=== PATIENT | female | born 1995 | race American Indian/Alaskan Native ===

== ENCOUNTER 2017-10-19 15:16 | Emergency (ER) | payer OTHER ==
[2017-10-19 16:02] VITALS: BP 112/74
[2017-10-19 17:23] LABS: HCG Qualitative,Urine Negative (Negative)
--- NOTE | 2017-10-19 19:58 | Emergency Department Report ---
- General Chief Complaint: Upper Respiratory Infection Stated Complaint: ABDOMINAL PAIN Time Seen by Provider: 10/19/17 19:33 Source: patient Mode of arrival: Ambulatory Limitations: No Limitations - History of Present Illness Initial Comments: 22-year-old female past medical history asthma, eczema presents with 1 week of cough and runny nose and slightly sore throat. Patient is awake alert and oriented 3 not in acute distress. Denies any significant fevers chills nausea vomiting chest pain palpitations or pleuritic chest pain. Patient is fully lucid. States she is also concerned she may be . MD Complaint: cough, rhinorrhea, nasal congestion Onset/Timin -: week(s) Severity: moderate Consistency: intermittent Improves With: OTC cold medicine Worsens With: nothing Context: sick contacts Associated Symptoms: headache, rhinorrhea, nasal congestion, sore throat, cough Treatments Prior to Arrival: "cold medicine" - Related Data Previous Rx's Medication Instructions Recorded Last Taken Type Albuterol Sulfate [Ventolin Hfa] 1 puff IH Q4H PRN #1 hfa.aer.ad 10/19/17 Unknown Rx Dextromethorphan/Benzocaine 1 each PO Q4H PRN #1 box 10/19/17 Unknown Rx [Cepacol Sorethroat-Cough Jatinder] Famotidine [Pepcid] 20 mg PO BID PRN #30 tablet 10/19/17 Unknown Rx Ibuprofen [Motrin] 600 mg PO Q8H PRN #30 tablet 10/19/17 Unknown Rx Phenylephrine/Dm/Acetaminop/GG 10 ml PO Q6H PRN #1 liquid 10/19/17 Unknown Rx [Mucinex Ftzr-Nvp-Sfmhzqckiu Lq] Allergies Allergy/AdvReac Type Severity Reaction Status Date / Time No Known Allergies Allergy Verified 10/19/17 15:54 ED Review of Systems ROS: Stated complaint: ABDOMINAL PAIN Other details as noted in HPI Constitutional: malaise. denies: chills, fever Eyes: denies: eye pain, eye discharge, vision change ENT: throat pain. denies: ear pain Respiratory: denies: cough, shortness of breath, wheezing Cardiovascular: denies: chest pain, palpitations Endocrine: no symptoms reported Gastrointestinal: denies: abdominal pain, nausea, diarrhea Genitourinary: denies: urgency, dysuria, discharge Musculoskeletal: denies: back pain, joint swelling, arthralgia Skin: denies: rash, lesions Neurological: denies: headache, weakness, paresthesias Psychiatric: denies: anxiety, depression Hematological/Lymphatic: denies: easy bleeding, easy bruising ED Past Medical Hx - Past Medical History Previous Medical History?: Yes Hx CVA: No Hx Congestive Heart Failure: No Hx Diabetes: No Hx Deep Vein Thrombosis: No Hx GERD: No Hx of Cancer: No Hx Arthritis: No Hx Asthma: Yes Hx COPD: No Hx Dementia: No - Surgical History Past Surgical History?: Yes Hx Coronary Stent: No Hx Open Heart Surgery: No Hx Pacemaker: No Hx Internal Defibrillator: No Hx Cholecystectomy: No Hx Appendectomy: Yes Hx Breast Surgery: No - Social History Smoking Status: Never Smoker Substance Use Type: Alcohol - Medications Home Medications: Home Medications Medication Instructions Recorded Confirmed Last Taken Type Albuterol Sulfate [Ventolin Hfa] 1 puff IH Q4H PRN #1 hfa.aer.ad 10/19/17 Unknown Rx Dextromethorphan/Benzocaine 1 each PO Q4H PRN #1 box 10/19/17 Unknown Rx [Cepacol Sorethroat-Cough Jatinder] Famotidine [Pepcid] 20 mg PO BID PRN #30 tablet 10/19/17 Unknown Rx Ibuprofen [Motrin] 600 mg PO Q8H PRN #30 tablet 10/19/17 Unknown Rx Phenylephrine/Dm/Acetaminop/GG 10 ml PO Q6H PRN #1 liquid 10/19/17 Unknown Rx [Mucinex Hivf-Rfy-Aucafnrjev Lq] ED Physical Exam - General Limitations: No Limitations General appearance: alert, in no apparent distress - Head Head exam: Present: atraumatic, normocephalic - Eye Eye exam: Present: normal appearance, PERRL, EOMI - ENT ENT exam: Present: mucous membranes moist - Neck Neck exam: Present: normal inspection - Respiratory Respiratory exam: Present: normal lung sounds bilaterally. Absent: respiratory distress - Cardiovascular Cardiovascular Exam: Present: regular rate, normal rhythm. Absent: systolic murmur, diastolic murmur, rubs, gallop - GI/Abdominal GI/Abdominal exam: Present: soft, normal bowel sounds - Extremities Exam Extremities exam: Present: normal inspection - Back Exam Back exam: Present: normal inspection - Neurological Exam Neurological exam: Present: alert, oriented X3 - Psychiatric Psychiatric exam: Present: normal affect, normal mood - Skin Skin exam: Present: warm, dry, intact, normal color. Absent: rash ED Course Vital Signs 10/19/17 15:54 Temperature 98.1 F Pulse Rate 77 Respiratory 16 Rate Blood Pressure 112/74 Blood Pressure 112/74 [Right] O2 Sat by Pulse 99 Oximetry Critical care attestation.: If time is entered above; I have spent that time in minutes in the direct care of this critically ill patient, excluding procedure time. ED Disposition Clinical Impression: Upper respiratory infection Qualifiers: URI type: unspecified viral URI Qualified Code(s): J06.9 - Acute upper respiratory infection, unspecified; B97.89 - Other viral agents as the cause of diseases classified elsewhere; B97.89 - Other viral agents as the cause of diseases classified elsewhere Disposition: DC-01 TO HOME OR SELFCARE Is pt being admited?: No Does the pt Need Aspirin: No Condition: Stable Instructions: Upper Respiratory Infection (ED), Viral Syndrome (ED), Cold Symptoms (ED) Prescriptions: Albuterol Sulfate [Ventolin Hfa] 1 puff IH Q4H PRN #1 hfa.aer.ad PRN Reason: Wheezing Dextromethorphan/Benzocaine [Cepacol Sorethroat-Cough Jatinder] 1 each PO Q4H PRN #1 box PRN Reason: Sore Throat Famotidine [Pepcid] 20 mg PO BID PRN #30 tablet PRN Reason: Indigestion Ibuprofen [Motrin] 600 mg PO Q8H PRN #30 tablet PRN Reason: Pain Phenylephrine/Dm/Acetaminop/GG [Mucinex Hygx-Ktv-Objzcsigtf Lq] 10 ml PO Q6H PRN #1 liquid PRN Reason: Cough Referrals: [facility] [Outside] - 3-5 Days [facility] [Outside] - 3-5 Days Time of Disposition: 20:02
== END 2017-10-19 20:12 | disposition home or self-care (01) ==
LOC: ED 15:16
DX: J06.9 Acute upper respiratory infection, unspecified (principal); B97.89 Other viral agents as the cause of diseases classified elsewhere; J45.909 Unspecified asthma, uncomplicated; Z90.49 Acquired absence of other specified parts of digestive tract
CPT/HCPCS: 81025; 87086; 87400; 99283